=== PATIENT | male | born 1940 | race Caucasian/White ===

== ENCOUNTER 2021-08-28 09:54 | Outpatient (CLI) | payer OTHER | END 2021-08-28 09:55 | disposition home or self-care (01) | LOC: CSHLAB 09:54 | PROVIDERS: ATTEND Family Medicine | DX: Z20.822 Contact with and (suspected) exposure to COVID-19 (principal) | CPT/HCPCS: 87811 ==

== ENCOUNTER 2021-08-29 09:44 | Outpatient (CLI) | payer MEDICARE | END 2021-08-29 09:45 | disposition home or self-care (01) | LOC: CSHRAD 09:44 | PROVIDERS: ATTEND Family Medicine | DX: J69.0 Pneumonitis due to inhalation of food and vomit (principal); R13.10 Dysphagia, unspecified; R47.02 Dysphasia | CPT/HCPCS: 74230 ==